=== PATIENT | female | born 1965 | race Caucasian/White ===

== ENCOUNTER 2017-05-19 16:22 | Emergency (ER) | payer OTHER ==
--- NOTE | 2017-05-19 16:42 | EDM.PDOC ---
ED HPI GENERAL MEDICAL PROBLEM - General Chief Complaint: Flank Pain Stated Complaint: UNK Time Seen by Provider: 05/19/17 16:25 - History of Present Illness INITIAL COMMENTS - FREE TEXT/NARRATIVE: HISTORY AND PHYSICAL: History of present illness: The patient is a 51-year-old female with a history of [id number] diabetes and hypertension who was seen in the ER in [facility] this morning and evaluated for a left kidney stone which started to be painful at approximately 2 AM. The patient had labs and a CAT scan which diagnosed a large kidney stone and the patient was sent to Dr. Vallejo's office this afternoon and was evaluated by him personally and the CT scan was reviewed. He has scheduled the patient for same day surgery tomorrow for laser surgery and stone removal. The patient has Percocet to use for pain and she states that she was doing okay when she left the doctor's office and they were going to drive to where they're staying, 1-1/2 hours from here( because they do not live here as they are from [place]) and the pain returned and is very severe. The patient has had some nausea but no vomiting with this and she presents to the ER for pain management. The patient has Percocet and says that she took a pain pill at 12 noon and then took another one just before coming here but it does not seem to be working. Review of systems: As per history of present illness and below otherwise all systems reviewed and negative. Past medical history: As per history of present illness and as reviewed below otherwise noncontributory. Surgical history: As per history of present illness and as reviewed below otherwise noncontributory. Social history: No reported history of drug or alcohol abuse. Family history: As per history of present illness and as reviewed below otherwise noncontributory. Physical exam: Gen.: Well-developed overweight female who is nontoxic but looks very uncomfortable in the room and is tearful intermittently. Assessment noted by me HEENT: Atraumatic, normocephalic, negative for conjunctival pallor or scleral icterus, mucous membranes moist, throat clear, neck supple, nontender, trachea midline. Lungs: Clear to auscultation, breath sounds equal bilaterally, chest nontender. Heart: S1S2, regular rate and rhythm no overt murmurs Abdomen: Soft, nondistended, nontender. Mildly hypoactive bowel sounds Pelvis: Stable nontender. Genitourinary: Deferred. Rectal: Deferred. Extremities: Atraumatic, negative for cords or calf pain. Neurovascular unremarkable. Neuro: Awake, alert, oriented. Cranial nerves II through XII unremarkable. Cerebellum unremarkable. Motor and sensory unremarkable throughout. Exam nonfocal. Diagnostics: Deferred as patient had full workup at an outside ER earlier this morning Therapeutics: IM Dilaudid 7947: Case was discussed with Dr. Vallejo; he would like to try to give a dose of pain medication here and not admit the patient. I've advised them to stay close to the hospital instead of going an hour and a half from here. They agree that they will stay locally and if there is any problems they can recontact the urologist or come here for admission. They're comfortable with trying this care plan. Even before receiving the Dilaudid here in the ED the patient is improving due to the waxing and waning nature of the stone pain Impression: Left kidney stone Definitive disposition and diagnosis as appropriate pending reevaluation and review of above. Left Flank Pain Score (Numeric/FACES): 8 - Related Data Allergies Allergy/AdvReac Type Severity Reaction Status Date / Time capsaicin Allergy Burning Verified 05/19/17 16:29 Home Meds: Home Meds Lisinopril 5 mg PO DAILY 05/19/17 [History] metFORMIN HCl [Metformin HCl] 1,000 mg PO BIDMEALS 05/19/17 [History] oxyCODONE HCl/Acetaminophen [Percocet 5-325 mg Tablet] 1 - 2 tab PO Q6H PRN 12/04 [History] Past Medical History HEENT History: Reports: Allergic Rhinitis Cardiovascular History: Reports: Hypertension Respiratory History: Reports: None Gastrointestinal History: Reports: GERD Other Gastrointestinal History: takes OTC meds Genitourinary History: Reports: Renal Calculus 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 Musculoskeletal History: Reports: None Neurological History: Reports: Other (See Below) Other Neuro History: hx of motion sickness Psychiatric History: Reports: None Endocrine/Metabolic History: Reports: Diabetes, Type II, Obesity/BMI 30+ Hematologic History: Reports: None Immunologic History: Reports: None Oncologic (Cancer) History: Reports: None Dermatologic History: Reports: None - Infectious Disease History Infectious Disease History: Reports: Chicken Pox - Past Surgical History Head Surgeries/Procedures: Reports: None HEENT Surgical History: Reports: Tonsillectomy Respiratory Surgical History: Reports: Lung Biopsies Other Respiratory Surgeries/Procedures: because of pneumonia GI Surgical History: Reports: Colonoscopy, Hernia, Inguinal Female Surgical History: Reports: D&C, Lithotripsy/ESWL, Oophorectomy Musculoskeletal Surgical History: Reports: None Social & Family History - Family History Family Medical History: Noncontributory - Tobacco Use Smoking Status *Q: Never Smoker - Caffeine Use Caffeine Use: Reports: None - Recreational Drug Use Recreational Drug Use: No Drug Use in Last 12 Months: No ED ROS GENERAL - Review of Systems Review Of Systems: ROS reveals no pertinent complaints other than HPI. ED EXAM, GENERAL - Physical Exam Exam: See Below (See dictation) Course - Vital Signs Last Recorded V/S: Last Vital Signs Temp 36.3 C 05/19/17 16:27 Pulse 78 05/19/17 16:27 Resp 18 05/19/17 16:27 BP 181/66 H 05/19/17 16:27 Pulse Ox 93 L 05/19/17 16:27 - Orders/Labs/Meds Meds: Medications Discontinued Medications Generic Name Dose Route Start Last Admin Trade Name Freq PRN Reason Stop Dose Admin Hydromorphone HCl 1 mg 05/19/17 16:43 Dilaudid IM 05/19/17 16:44 ONETIME ONE Departure - Departure Time of Disposition: 16:51 Disposition: Home, Self-Care 01 Condition: Good Clinical Impression: Kidney stone - Discharge Information Forms: ED Department Discharge Additional Instructions: The following information is given to patients seen in the emergency department who are being discharged to home. This information is to outline your options for follow-up care. We provide all patients seen in our emergency department with a follow-up referral. The need for follow-up, as well as the timing and circumstances, are variable depending upon the specifics of your emergency department visit. If you don't have a primary care physician on staff, we will provide you with a referral. We always advise you to contact your personal physician following an emergency department visit to inform them of the circumstance of the visit and for follow-up with them and/or the need for any referrals to a consulting specialist. The emergency department will also refer you to a specialist when appropriate. This referral assures that you have the opportunity for followup care with a specialist. All of these measure are taken in an effort to provide you with optimal care, which includes your followup. Under all circumstances we always encourage you to contact your private physician who remains a resource for coordinating your care. When calling for followup care, please make the office aware that this follow-up is from your recent emergency room visit. If for any reason you are refused follow-up, please contact the [facility] emergency department at and ask to speak to the emergency department charge nurse. [facility] [address] [place] [phone] Push hydration and rest. Use your Percocet as ascribed and keep your appointment tomorrow in same day surgery. Return to the ER as needed and as discussed.
[2017-05-19] MEDS ORDERED: HYDROmorphone 2 MG/ML Syringe IM ONE (16:43)
[2017-05-19 17:35] VITALS: BP 131/71
== END 2017-05-19 17:06 | disposition home or self-care (01) ==
LOC: MW.ED 16:22
DX: N20.0 Calculus of kidney (principal); I10 Essential (primary) hypertension; K21.9 Gastro-esophageal reflux disease without esophagitis; E11.9 Type 2 diabetes mellitus without complications; E66.9 Obesity, unspecified; Z79.84 Long term (current) use of oral hypoglycemic drugs; Z79.899 Other long term (current) drug therapy; Z91.018 Allergy to other foods; Z98.890 Other specified postprocedural states
CPT/HCPCS: 96372; 99283; J1170

== ENCOUNTER 2017-05-20 07:52 | Day surgery (SDC) | payer OTHER ==
[~2017-05-20 07:52] MED LIST: Ciprofloxacin in D5W 400 MG in Premix Bag 1 BAG IV SCH; Iopamidol 408 MG/ML 50 ML SDV ONE; Lactated Ringers 1,000 ML IV SCH
[2017-05-20] MEDS ORDERED: Scopolamine 1.5 MG Transdermal Patch TOP ONE (08:14)
--- NOTE | 2017-05-20 09:10 | PCM.PREANE ---
Preanesthetic Assessment - Procedure Proposed Procedure: Ureteral stone laser lithotripsy via urethroscopy. - Anesthesia/Transfusion/Family Hx Anesthesia History: Prior Anesthesia Without Reaction Family History of Anesthesia Reaction: No Transfusion History: No Prior Transfusion(s) Intubation History: Unknown - Review of Systems General: Other (pain due to stone; on pain meds since last PM) Pulmonary: No Symptoms Cardiovascular: Other (hypertension) Gastrointestinal: Abdominal Pain (probably due to ureteral stone) Neurological: No Symptoms Other: Reports: Diabetes (type II on metformin) - Physical Assessment NPO Status Date: 05/19/17 NPO Status Time: 22:00 Height: 5 ft 4 in Weight: 208 lb ASA Class: 3 Mental Status: Alert & Oriented x3 Airway Class: Mallampati = 3 Dentition: Reports: Normal Dentition Thyro-Mental Finger Breadths: 3 Mouth Opening Finger Breadths: 3 (small mouth) ROM/Head Extension: Full Lungs: Clear to Auscultation, Normal Respiratory Effort Cardiovascular: Regular Rate, Regular Rhythm, No Murmurs - Allergies Allergies/Adverse Reactions: Allergies Allergy/AdvReac Type Severity Reaction Status Date / Time capsaicin Allergy Burning Verified 05/20/17 08:13 - Blood Blood Available: No Product(s) Available: None - Acknowledgements Anesthesia Type Planned: General Anesthesia (OET) Pt an Appropriate Candidate for the Planned Anesthesia: Yes Alternatives and Risks of Anesthesia Discussed w Pt/Guardian: Yes Pt/Guardian Understands and Agrees with Anesthesia Plan: Yes PreAnesthesia Questionnaire HEENT History: Reports: Allergic Rhinitis Cardiovascular History: Reports: Hypertension Respiratory History: Reports: None Gastrointestinal History: Reports: GERD Other Gastrointestinal History: takes OTC meds Genitourinary History: Reports: Renal Calculus 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 Musculoskeletal History: Reports: None Neurological History: Reports: Other (See Below) Other Neuro History: hx of motion sickness Psychiatric History: Reports: None Endocrine/Metabolic History: Reports: Diabetes, Type II, Obesity/BMI 30+ Hematologic History: Reports: None Immunologic History: Reports: None Oncologic (Cancer) History: Reports: None Dermatologic History: Reports: None - Infectious Disease History Infectious Disease History: Reports: Chicken Pox - Past Surgical History Head Surgeries/Procedures: Reports: None HEENT Surgical History: Reports: Tonsillectomy Respiratory Surgical History: Reports: Lung Biopsies Other Respiratory Surgeries/Procedures: because of pneumonia GI Surgical History: Reports: Colonoscopy, Hernia, Inguinal Female Surgical History: Reports: D&C, Lithotripsy/ESWL, Oophorectomy Musculoskeletal Surgical History: Reports: None - SUBSTANCE USE Smoking Status *Q: Never Smoker Recreational Drug Use History: No - HOME MEDS Home Medications: Home Meds Lisinopril 5 mg PO DAILY 05/19/17 [History] metFORMIN HCl [Metformin HCl] 1,000 mg PO BIDMEALS 05/19/17 [History] oxyCODONE HCl/Acetaminophen [Percocet 5-325 mg Tablet] 1 - 2 tab PO Q6H PRN 12/04 [History] - CURRENT (IN HOUSE) MEDS Current Meds: Current Medications Ciprofloxacin/Dextrose 400 mg/ (Premix) 200 mls @ 200 mls/hr IV ONCALL [facility] Last Admin: 05/20/17 08:32 Dose: 200 mls/hr Lactated Ringer's (Ringers, Lactated) 1,000 mls @ 100 mls/hr IV ASDIRECTED [facility] Last Admin: 05/20/17 08:29 Dose: 100 mls/hr Discontinued Medications Iopamidol (Isovue-200 (41%)) Confirm Administered Dose 50 ml .ROUTE .STK-MED ONE Stop: 05/20/17 07:28 Iopamidol (Isovue-200 (41%)) Confirm Administered Dose 50 ml .ROUTE .STK-MED ONE Stop: 05/20/17 07:28 Scopolamine (Transderm-Scop) 1.5 mg TOP ONETIME ONE Stop: 05/20/17 08:15 Last Admin: 05/20/17 09:02 Dose: Not Given
[2017-05-20] MEDS ORDERED: Propofol 200 MG/20 ML SDV ONE ×2 (09:18→10:50)
[2017-05-20] MEDS ORDERED: Lidocaine 2% 5 ML SDV ONE (09:18)
[2017-05-20] MEDS ORDERED: fentaNYL 250 MCG/5 ML SDV ONE (09:19)
[2017-05-20] MEDS ORDERED: Ondansetron 4 MG/2 ML SDV ONE (09:19)
[2017-05-20] MEDS ORDERED: Midazolam 1 MG/ML 2 ML SDV ONE (09:19)
[2017-05-20] MEDS ORDERED: Neostigmine Methylsulfate 1 MG/ML 5 ML Syringe ONE (09:19)
[2017-05-20] MEDS ORDERED: Ketorolac 30 MG/ML SDV ONE (09:19)
[2017-05-20] MEDS ORDERED: ePHEDrine 50 MG/ML SDV ONE (10:11)
[2017-05-20] MEDS ORDERED: fentaNYL 100 MCG/2 ML SDV IVPUSH PRN (11:34)
--- NOTE | 2017-05-20 11:49 | PCM.POSTAN ---
POST ANESTHESIA ASSESSMENT - MENTAL STATUS Mental Status: Alert, Oriented - VITAL SIGNS Pulse Rate: 93 SaO2: 93 (Room air SaO2 93 but drifts when resting supplemental nasal prongs prn in phase 2) Resp Rate: 19 Blood Pressure: 133/71 - RESPIRATORY Respiratory Status: Respiratory Rate WNL, Airway Patent, O2 Saturation Stable, Supplemental Oxygen - CARDIOVASCULAR CV Status: Pulse Rate WNL, Blood Pressure Stable - GASTROINTESTINAL GI Status: No Symptoms - PAIN Pain Score: 0 - POST OP HYDRATION Hydration Status: Adequate & Stable - OBSERVATIONS Free Text/Narrative:: Satisfactory post anesthesia condition. moving to [facility] surgery for discharge preparation
--- NOTE | 2017-05-20 12:43 | OR ---
SURGEON: Flavio Vallejo M.D. DATE OF PROCEDURE: 05/20/2017 PREOPERATIVE DIAGNOSIS: 1.4 cm left ureterovesical junction stone with hydronephrosis under ureter. POSTOPERATIVE DIAGNOSIS: 1.4 cm left ureterovesical junction stone with hydronephrosis under ureter. OPERATIONS: Left ureteroscopy and laser lithotripsy. DESCRIPTION OF PROCEDURE: The patient was given general anesthesia, placed in dorsal lithotomy position, prepped and draped in sterile drapes. Cystourethroscopy was done showed a greatly distended left ureteral tunnel and a stone visualized in part through the ureteral orifice. The bladder was normal. A Glidewire was advanced alongside the stone up into the renal pelvis that was confirmed on fluoroscopy. The rigid ureteroscope was then applied to the stone, laser was used to break it up into a multitude of dust and pieces. The pieces were eventually retrieved using the cystoscopic grasper. Some dust and sand were left in the bladder and in the ureter that will pass. Two minor bleeding points in the ureter were fulgurated. The bladder was emptied and the patient was moved to recovery room in good condition. YUAN / JAMAR /[id number]
[2017-05-20 12:57] VITALS: BP 127/71
--- NOTE | 2017-05-20 15:07 | CR ---
EXAMINATION: Left ureteroscopy HISTORY: Ureteroscopy COMPARISON: None TECHNIQUE: Single image FINDINGS/IMPRESSION: Operative control films demonstrate selection of the left ureter. There is a ro unded opacity projecting over the lower pelvis, possibly a stone versus phlebolith.
== END 2017-05-20 13:00 | disposition home or self-care (01) ==
LOC: MW.SDS 07:52
PROVIDERS: ATTEND Urology
PROC: 0TF48ZZ Fragmentation in Left Kidney Pelvis, Via Natural or Artificial Opening Endoscopic (ICD-10-PCS; principal; 2017-05-20)
PROC: 0T778DZ Dilation of Left Ureter with Intraluminal Device, Via Natural or Artificial Opening Endoscopic (ICD-10-PCS; 2017-05-20)
DX: N13.2 Hydronephrosis with renal and ureteral calculous obstruction (principal); I10 Essential (primary) hypertension; K21.9 Gastro-esophageal reflux disease without esophagitis; E11.9 Type 2 diabetes mellitus without complications; Z87.442 Personal history of urinary calculi; Z90.721 Acquired absence of ovaries, unilateral; Z90.89 Acquired absence of other organs; Z98.890 Other specified postprocedural states; Z91.018 Allergy to other foods; Z79.84 Long term (current) use of oral hypoglycemic drugs; Z79.899 Other long term (current) drug therapy
CPT/HCPCS: 52353; 76000; 88300; C1769; J0744; J1885; J2250; J2405; J3010; J7120; Q9966; 00918; J2704